=== PATIENT | female | born 1935 | race Caucasian/White ===

== ENCOUNTER → 2017-12-08 12:06 | Day surgery (SDC) | payer MEDICARE, BC ==
[~2017-12-08 12:06] MED LIST: Acetaminophen TAB* 325 MG PO PRN; Buffered Lidocaine 0.9% SYRIN* 5 ML/SYR SYRINGE INTRADERM ONE; Labetalol IV* 5 MG/ML 20 ML VIAL IV PUSH PRN; Lidocain 1% EPI 1:100,000 * 30 ML MDV ONE; Metoprolol Tartrate TAB* 25 MG ONE; Metoprolol Tartrate TAB* 50 mg PO ONE; Midazolam* 1 MG/ML 2 ML VIAL (2 MG) ONE; Mineral Oil Sterile, TOPICAL* 25 ML BTL ONE; Naloxone* 0.4 MG/ML 1 ML VIAL IV PRN; Ondansetron INJ* 2 MG/ML VIAL IV PRN; Propofol* 10 MG/ML 20 ML BTL IV PUSH ONE; ceFAZolin 2 GM in NS PREMIX(*) 2 GM/100 ML BAG IVPB ONE; fentaNYL* 50 MCG/ML 2 ML VIAL (100 MCG VIAL) IV PRN; fentaNYL* 50 MCG/ML 2 ML VIAL (100 MCG VIAL) ONE; hydrALAZINE IV* 20 MG/ML VIAL IV SLOW PU PRN
[2017-12-08 16:24] VITALS: BP 141/81
== END | disposition home or self-care (01) ==
LOC: OR 12:06
PROVIDERS: ATTEND Plastic Surgery
DX: C44.311 Basal cell carcinoma of skin of nose (principal); I10 Essential (primary) hypertension; J45.909 Unspecified asthma, uncomplicated; Z88.5 Allergy status to narcotic agent
CPT/HCPCS: 88305; 88331; 88332; A9270-GY; J0690; J2250; J2704; J3010

== ENCOUNTER 2020-09-25 07:55 | Observation (INO) ==
[~2020-09-25 07:55] MED LIST changes: -Acetaminophen TAB* 325 MG PO PRN; -Buffered Lidocaine 0.9% SYRIN* 5 ML/SYR SYRINGE INTRADERM ONE; +Buffered Lidocaine 1% SYRIN 1 ml INTRADERM ONE; -Labetalol IV* 5 MG/ML 20 ML VIAL IV PUSH PRN; +Lactated Ringers 1000 ml BAG 1,000 ML IV SCH; -Lidocain 1% EPI 1:100,000 * 30 ML MDV ONE; -Metoprolol Tartrate TAB* 25 MG ONE; -Metoprolol Tartrate TAB* 50 mg PO ONE; -Midazolam* 1 MG/ML 2 ML VIAL (2 MG) ONE; -Mineral Oil Sterile, TOPICAL* 25 ML BTL ONE; -Naloxone* 0.4 MG/ML 1 ML VIAL IV PRN; -Ondansetron INJ* 2 MG/ML VIAL IV PRN; -Propofol* 10 MG/ML 20 ML BTL IV PUSH ONE; -ceFAZolin 2 GM in NS PREMIX(*) 2 GM/100 ML BAG IVPB ONE; -fentaNYL* 50 MCG/ML 2 ML VIAL (100 MCG VIAL) IV PRN; -fentaNYL* 50 MCG/ML 2 ML VIAL (100 MCG VIAL) ONE; -hydrALAZINE IV* 20 MG/ML VIAL IV SLOW PU PRN
[2020-09-25] MEDS ORDERED: Buffered Lidocaine 1% SYRIN 1 ml INTRADERM ONE (08:28)
[2020-09-25] MEDS ORDERED: fentaNYL 100 mcg/2 ml 50 MCG/ML VIAL ONE ×2 (09:15→10:58)
[2020-09-25] MEDS ORDERED: Rocuronium 50 mg VIAL 10 mg/ml 5 ml VIAL (50 mg) ONE (09:23)
[2020-09-25] MEDS ORDERED: Ropivacaine 5 MG/ML 20 ML VIAL 0.5% (100 MG) ONE ×2 (10:44→12:50)
[2020-09-25] MEDS ORDERED: EPHEDrine (Pressors) 50 MG/ML VIAL ONE (11:40)
[2020-09-25] MEDS ORDERED: Ondansetron 4 mg VIAL 2 MG/ML 2 ml VIAL ONE (12:04)
[2020-09-25] MEDS ORDERED: Propofol 10 MG/ML 20 ML BTL ONE (12:04)
[2020-09-25] MEDS ORDERED: Lidocaine 2% PF 5 ML VIAL ONE (12:04)
[2020-09-25] MEDS ORDERED: Dexamethasone IV 4 MG/ML VIAL 1 ml VIAL ONE (12:04)
[2020-09-25] MEDS ORDERED: Phenylephrine 40 mcg/mL 10mL (400mcg) SYRINGE ONE (12:04)
[2020-09-25] MEDS ORDERED: Acetaminophen IV 1 GM/100ML 100 ML IV ONE (12:04)
[2020-09-25] MEDS ORDERED: HYDROmorphone 1 MG/1 ML SYRINGE ONE ×2 (12:23→13:20)
[2020-09-25] MEDS ORDERED: Naloxone 0.4 mg VIAL 0.4 mg/ml 1 ml VIAL IV PRN (13:10)
[2020-09-25] MEDS ORDERED: DiMENhydriNATE IV 50 mg/ml 1 ml VIAL IV PUSH PRN (13:10)
[2020-09-25] MEDS ORDERED: Ondansetron 4 mg VIAL 2 MG/ML 2 ml VIAL IV PRN (13:15)
[2020-09-25] MEDS ORDERED: Lactulose 30 ml UDC PO PRN (13:15)
[2020-09-25] MEDS ORDERED: diPHENhydraMINE IV 50 MG/ML 1 ml VIAL (BENADRYL) IV PRN (13:15)
[2020-09-25] MEDS ORDERED: Magnesium Hydroxide LIQ 30 ML UDC PO PRN (13:15)
[2020-09-25] MEDS ORDERED: Ondansetron ODT 4 mg TAB 4 MG TAB PO PRN (13:15)
[2020-09-25] MEDS ORDERED: diPHENhydraMINE 25 mg TAB PO PRN (13:15)
[2020-09-25] MEDS ORDERED: Morphine 2 MG/ML SYRINGE IV PRN (13:15)
[2020-09-25] MEDS: HYDROmorphone 1 MG/1 ML SYRINGE IV PRN ×3 (13:20→13:53)
[2020-09-25] MEDS ORDERED: Dextran 70/Hypromellose Tears Eye Drops 15 ml BTL (for Artificials Tears) BOTH EYES PRN (13:25)
[2020-09-25] MEDS ORDERED: Lactated Ringers 1000 ml BAG 1,000 ML IV SCH (14:00)
[2020-09-25] MEDS: ceFAZolin 1 GM ADVAN 1 GM in NS 0.9% 50 ML 50 ML IVPB SCH (18:24)
[2020-09-25 20:07] LABS: Hematocrit 33 % (35-47)
[2020-09-25] MEDS: Magnesium Hydroxide LIQ 30 ML UDC PO SCH (21:36)
[2020-09-26] MEDS: ceFAZolin 1 GM ADVAN 1 GM in NS 0.9% 50 ML 50 ML IVPB SCH ×2 (02:43→10:12)
[2020-09-26 06:50] LABS: Hematocrit 29 % (35-47); Mean Platelet Volume 6.8 fL (7.4-10.4); Platelet Count 278 10^3/uL (150-450)
[2020-09-26 07:07] LABS: Calcium 9.7 mg/dL (8.6-10.3); EGFR African American 50.1 (>60); EGFR Non-African American 41.4 (>60); Potassium 4.2 mmol/L (3.5-5.0)
[2020-09-26] MEDS: Magnesium Hydroxide LIQ 30 ML UDC PO SCH (08:33)
[2020-09-26] MEDS ORDERED: Aspirin EC 81 mg TAB.EC (enteric coated) PO SCH (09:00)
[2020-09-26] MEDS ORDERED: Vitamin THERAPEUTIC TAB PO SCH (09:00)
[2020-09-26 11:18] VITALS: BP 145/71
== END 2020-09-26 14:35 | disposition home or self-care (01) ==
LOC: AA 07:55 → INTOOBSV 07:55 → EDSTATUS 11:00 → SSU 14:31
PROVIDERS: ADMIT Orthopaedic Surgery Adult Reconstructive Orthopaedic Surgery; ATTEND Orthopaedic Surgery Adult Reconstructive Orthopaedic Surgery